=== PATIENT | female | born 1940 | race African-American/Black ===

== ENCOUNTER 2017-04-05 14:30 | Inpatient (IN) | payer OTHER ==
[~2017-04-05] VITALS: Ht 165.1 cm; Wt 67.6 kg
[2017-04-05] MEDS ORDERED: ONDANSETRON HCL 4MG/2ML VIAL IV ONE ×2 (15:15→20:00)
[2017-04-05] MEDS ORDERED: SODIUM CHLORIDE 0.9% 1000ML BAG (SEPSIS BOLUS) IV ONE (15:15)
[2017-04-05] MEDS ORDERED: MORPHINE SULFATE 4 MG/ML CPJ (NOT FOR IM USE) IV ONE (15:15)
[2017-04-05 15:42] LABS: BASOPHILS % 0.7 % (0.0-2.0); EOSINOPHILS % 1.5 % (0.0-5.0); HEMATOCRIT. 36.2 % (36.0-48.0); LYMPHOCYTES % 23.7 % (20.0-50.0); MEAN CORPUSCULAR HEMOGLOBIN 30.9 pg (28.0-32.0); MEAN PLATELET VOLUME 10.9 fl (7.4-10.4); MONOCYTES % 10.3 % (2.0-8.0); NEUTROPHILS % 63.8 % (40.0-76.0); PLATELET 211 x1000/uL (130-400); RED BLOOD CELL COUNT 3.89 mill/uL (4.2-5.4); RED CELL DISTRIBUTION WIDTH 17.5 % (11.6-14.6)
[2017-04-05 15:44] LABS: CHLORIDE 105 mEq/L (98-107)
[2017-04-05 15:45] LABS: PROTHROMBIN TIME 10.8 sec (9.4-11.6)
[2017-04-05] MEDS ORDERED: DIPHENHYDRAMINE 50MG/ML VIAL IV ONE (15:45)
[2017-04-05 15:54] LABS: CARBON DIOXIDE 28 mEq/L (21-32)
[2017-04-05 16:33] LABS: CLARITY URINE TURBID (CLEAR); COLOR URINE ORANGE (YELLOW); GLUCOSE URINE NEGATIVE (NEGATIVE); KETONES URINE NEGATIVE (NEGATIVE); LEUKOCYTE ESTERASE URINE 3+ (NEGATIVE); NITRITE URINE NEGATIVE (NEGATIVE); OCCULT BLOOD URINE 3+ (NEGATIVE); PH URINE >=9.0 (4.5-8.0); PROTEIN URINE 3+ (NEGATIVE); SPECIFIC GRAVITY URINE 1.022 (1.005-1.030)
[2017-04-05] MEDS ORDERED: PIPERACILLIN SODIUM/TAZOBACTAM 4.5 G in DEXT 5% WATER 100 ML IV SCH (19:30)
[2017-04-05] MEDS ORDERED: HYDROMORPHONE HCL/PF 2MG/ML CPJ IV ONE (20:00)
[2017-04-05] MEDS ORDERED: LABETALOL 5MG/ML SYR 20 MG/4 ML SYRINGE IV ONE (21:15)
[2017-04-05 23:00] VITALS: BP 166/99
[2017-04-05] MEDS ORDERED: ACETAMINOPHEN 325MG TABLET PO PRN (23:15)
[2017-04-05] MEDS ORDERED: HYDRALAZINE 20MG/ML VIAL IV PRN (23:15)
[2017-04-05] MEDS ORDERED: ONDANSETRON HCL 4MG/2ML VIAL IV PRN (23:15)
[2017-04-05] MEDS ORDERED: HYDROMORPHONE HCL/PF 2MG/ML CPJ IV PRN (23:15)
[2017-04-05] MEDS ORDERED: DIPHENHYDRAMINE 50MG/ML VIAL IV PRN (23:15)
[2017-04-06] VITALS: BP 166/99
[2017-04-06] MEDS: SODIUM CHLORIDE 0.9% 1,000 ML IV SCH ×2 (01:33→14:38)
[2017-04-06 04:00] VITALS: BP 156/100
[2017-04-06] MEDS: PIPERACILLIN/TAZ 3.375G PREMIX 50 ML IV SCH ×2 (04:53→12:45)
[2017-04-06 07:41] VITALS: BP 154/93
[2017-04-06] MEDS ORDERED: INFLUENZA VIRUS VACCINE 0.5ML SYR IM ONE (10:00)
[2017-04-06] MEDS ORDERED: PNEUMOCOCCAL 23-VAL P-SAC VAC 0.5 ML IM ONE (10:00)
[2017-04-06 12:00] VITALS: BP 155/97
[2017-04-06 16:00] VITALS: BP 162/78
[2017-04-06 19:40] VITALS: BP 149/85
== END 2017-04-06 20:08 | disposition short-term general hospital (02) | DRG 872 ==
LOC: ER 14:44 → 5WST 20:34 → ENRESERV 20:47
PROVIDERS: ADMIT Internal Medicine; ATTEND Internal Medicine
DX: A41.9 Sepsis, unspecified organism (principal); K57.32 Diverticulitis of large intestine without perforation or abscess without bleeding; I10 Essential (primary) hypertension; N30.01 Acute cystitis with hematuria; Z88.6 Allergy status to analgesic agent; Z96.651 Presence of right artificial knee joint
CPT/HCPCS: 36415; 74176; 80053; 81001; 83605; 83690; 85025; 85610; 87040; 87086; 90686; 90732; 96361; 96365; 96375; 96376; 99285; C1893; J0360; J1170; J1200; J2270; J2405; J2543; J3490; J7030; J7040; J7060